=== PATIENT | female | born 1990 | race African-American/Black ===

== ENCOUNTER → 2020-06-04 09:31 | Outpatient (CLI) | payer OTHER, SELFPAY ==
[2020-06-05 16:59] LABS: COVID19 Sendout Not Detected (Not Detect)
== END ==
PROVIDERS: Visit Provider Physician Assistant
DX: Z11.59 Encounter for screening for other viral diseases (principal)
CPT/HCPCS: 87635

== ENCOUNTER 2020-06-07 08:31 | Day surgery (SDC) | payer OTHER, SELFPAY ==
--- NOTE | 2020-06-07 | PATH_ITS ---
[facility] Accession Number: [id number] . 01 Material submitted: . rectum - RECTAL BIOPSY . 02 Diagnosis: Rectum, Biopsy: Mild active colitis; please see comment. Negative for granulomata, dysplasia or malignancy. V 06/09/2020 1035 Local . 02 Comment: The histologic findings raise a differential diagnosis including infection, drug/toxin-induced injury and, in the appropriate clinical setting, idiopathic inflammatory bowel disease. . 02 Electronically signed: . Aniket Huynh MD, PhD, Pathologist NPI- [id number] . 01 Gross description: . Received in formalin, labeled rectal biopsy, and consists of four new-white fragments of soft tissue measuring 0.6 x 0.5 x 0.2 cm in aggregate. The specimen is entirely submitted in cassette A1. ([id number]) /[facility] 06/08/2020 1100 Local . 02 Pathologist provided ICD-10: K52.9 . 02 CPT . 350635 Performed at: 01 [facility] [address] [facility], [place], [place] [id number] MD Gerry Ceja MD Phone: [phone] Performed at: 02 [facility] [address] [place], [place] [id number] MD Mariaelena Fox MD Phone: [phone]
--- NOTE | 2020-06-07 07:57 | P.HP_ITS ---
History of Present Illness History of Present Illness Date Patient Seen: 06/07/20 Chief complaint: SDC Narrative: 30-year-old female with a history of chronic constipation and abdominal pain who was seen at our office on 05/10/2020. Please refer to that note for further details. There have been no significant changes to her symptoms and physical exam since that visit Meds Home Medications and Allergies Home Medications Medication Instructions Recorded Confirmed Type bupropion HCl [Wellbutrin XL] 300 mg PO QAM 06/07/20 06/07/20 History lisinopril 10 mg PO DAILY 06/07/20 06/07/20 History propranolol 20 mg PO BID 06/07/20 06/07/20 History sertraline [Zoloft] 100 mg PO DAILY 06/07/20 06/07/20 History trazodone 225 mg PO DAILY 06/07/20 06/07/20 History Allergies Allergy/AdvReac Type Severity Reaction Status Date / Time No Known Drug Allergies Allergy Verified 06/07/20 08:51 Exam Narrative Exam Narrative: General: Patient is well developed, not in apparent distress Cardiovascular: Regular rate and rhythm, no murmurs, rubs, or gallops; no evidence of edema; no palpable abdominal aortic aneurysm Gastrointestinal: Normoactive bowel sounds, soft, nontender, nondistended, no rebound tenderness, no hepatosplenomegaly, no evidence of hernia Assessment & Plan Assessment & Plan narrative: 30-year-old female with chronic constipation and abdominal discomfort here for further evaluation to rule out luminal pathology Regarding the procedure(s), the risks and potential complications, benefits, and alternatives (including not doing the procedure) were discussed with the niko zamarripa. The risks include but are not limited to bleeding, splenic injury, infection, perforation which may require surgical intervention, missed lesions, and adverse reactions to sedative medicines. After a question and answer period, the patient agreed to proceed with the procedure(s) and gives informed consent.
[2020-06-07 08:56] VITALS: BP 126/76; PULSE 76; RESP 16; TEMP 36.4; O2SAT 99; BMI 25.1
[2020-06-07] MEDS: SODIUM CHLORIDE 0.9% 1,000 ML 70 ML IV (09:04)
[2020-06-07 09:35] VITALS: BP 97/59; PULSE 67; RESP 20; TEMP 36.4; O2SAT 99
[2020-06-07] MEDS: fentaNYL 250 MCG/5 ML INJ IV (09:35)
[2020-06-07] MEDS: MIDAZOLAM 5 MG/5 ML VIAL IV (09:35)
--- NOTE | 2020-06-07 09:37 | PM.OP.ENDO ---
Operative Date/Time/Diagnoses Date of procedure: 06/07/20 Procedure & Clinicians Indications: Surgeon: Vasile Montana MD Procedure: Colonoscopy with biopsy Preoperative diagnosis: Chronic constipation Postoperative diagnosis: Distal rectal nodularity status post biopsy Medications: Conscious sedation using 4 mg IV of Midazolam and 100 mcg IV of Fentanyl Preanesthesia Assessment An H and P was performed/updated and the Px?s ASA class is 2. The procedure was discussed in detail with the patient. The potential risks and complications including infection, bleeding, missed lesions, perforation, need for surgery in case of perforation, prolonged hospital stay, and were explained. A brief question and answer period was allotted and once all questions were answered, informed consent was obtained. The patient was brought back to the procedure room and placed on standard monitoring. The patient?s vital signs were monitored continuously throughout the entire procedure. Prior to starting, a timeout was performed to confirm the patient?s identity, allergies, medications, and procedure. Procedure in detail The patient was placed in left lateral decubitus position and once adequate sedation was obtained a YESSENIA was performed. The digital rectal examination did not reveal any palpable lesions. The tip of the colonoscope was placed in the anal canal and advanced without difficulty all the way to the cecum which was identified by the appendiceal orifice and the ileocecal valve. Careful examination of all craig of the colon was performed with irrigation of any residual stool. There was no evidence of stenosis or colonic mass throughout the entire colon. Retroflexion was performed in the rectum which showed whitish nodularity in the distal rectal area. Biopsies were taken for histology. Estimated blood loss was minimal. The patient tolerated the procedure well and will be brought back to the recovery area to be discharged once criteria are met. The prep was judged to be good and adequate to identify polyps less than 5 mm. The withdrawal time was 10 minutes. The total physician intraservice time was 18 minutes. Complications There were no complications and estimated blood loss was minimal. Recommendations: Resume previous diet Continue outPx medications Follow up pathology results Repeat colonoscopy depending on pathology results Follow-up with Dr. Millan as previously scheduled An emergency contact number was given to the patient for any complications related to the procedure
[2020-06-07 09:40] VITALS: BP 102/67; PULSE 68; RESP 13; TEMP 36.3; O2SAT 99
[2020-06-07 09:45] VITALS: BP 106/71; PULSE 65; RESP 13; TEMP 36.8; O2SAT 99
[2020-06-07 09:51] VITALS: BP 101/61; PULSE 61; RESP 16; TEMP 36.4; O2SAT 99
[2020-06-07 10:08] VITALS: BP 113/83; PULSE 56; RESP 16; TEMP 36; O2SAT 100
--- NOTE | 2020-06-07 10:08 | SUR.PHASEII ---
patient home in stable condition with friend, Mendel.
== END 2020-06-07 10:09 | disposition home or self-care (01) ==
PROVIDERS: Referring Provider Internal Medicine Gastroenterology; Visit Provider Internal Medicine Gastroenterology
PROC: 0DJD8ZZ Inspection of Lower Intestinal Tract, Via Natural or Artificial Opening Endoscopic (ICD-10-PCS; CPT 45378; principal; 2020-06-07 09:30)
DX: K52.9 Noninfective gastroenteritis and colitis, unspecified (principal)
CPT/HCPCS: 45380; J2250; J3010

== ENCOUNTER → 2021-05-11 12:22 | Outpatient (CLI) | payer OTHER, SELFPAY ==
--- NOTE | 2021-05-11 | DI.MRI.S_ITS ---
PROCEDURE: MR LUMBAR SPINE WO CON INDICATIONS: Radiculopathy, lumbosacral region TECHNIQUE: Noncontrast sagittal T1 spin echo and T2 fast echo, sagittal STIR, axial T1 and T2 fast spin echo through the lumbar spine. In cases with scoliosis, additional coronal T2 fast spin echo may be performed. COMPARISON: [facility] [place], CR, XR LUMBAR SPINE WITH OLBIQUES PLUS FLEXION EXTENSION, 04/23/2021, 11:02. [facility] Outside Film, CT, CT ABDOMEN PELVIS WITHOUT CONTRAST, 10/13/2020, 8:17. FINDINGS: Image quality: Excellent. Alignment and Curvature: There is normal bony alignment. Bone Marrow: Marrow is of normal overall signal. No acute vertebral body compression fractures. Spinal Cord: Conus medullaris terminates at the L1 level. Visualized cord demonstrates normal signal and size. Paraspinous Soft Tissues: No paravertebral masses. T12-L1: Normal appearance. L1-L2: Normal appearance. L2-L3: Normal appearance. L3-L4: No significant abnormality is seen L4-L5: The disc height and disk signal are well-preserved. Minimal disc bulge is seen. Mild facet joint hypertrophy is seen. There is [id number] right-sided and mild left-sided neural foraminal narrowing seen. The central canal is widely patent. L5-S1: The disc height and disk signal are well-preserved. Mild generalized disc bulge is seen, with a mild central disc protrusion. Mild to moderate facet hypertrophy is seen. At least moderate bilateral neural foraminal narrowing can be seen. There is a degree of compression seen upon the exiting nerve roots. Mild central canal narrowing is seen. IMPRESSION: Premature lower lumbar spine degenerative changes are seen, including at least moderate bilateral neural foraminal narrowing at L5-S1, with associated exiting L5 nerve root compression. Dictated by: Ori Barker M.D. on 05/11/2021 at 12:25 Approved by: Ori Barker M.D. on 05/11/2021 at 12:27
== END ==
PROVIDERS: Referring Provider Physical Medicine & Rehabilitation Pain Medicine; Visit Provider Physical Medicine & Rehabilitation Pain Medicine
DX: M54.17 Radiculopathy, lumbosacral region (principal)
CPT/HCPCS: 72148

== ENCOUNTER → 2022-02-14 18:09 | Outpatient (CLI) | payer OTHER, SELFPAY ==
--- NOTE | 2022-02-14 | DI.MRI.S_ITS ---
PROCEDURE: MR CERVICAL SPINE WO CON INDICATIONS: CERVICALGIA TECHNIQUE: Noncontrast sagittal T1 spin echo and T2 fast spin echo, sagittal STIR, foraminal oblique sagittal T2 fast spin echo, and axial gradient echo or T2 fast spin echo through the cervical spine. COMPARISON: [facility] [place], CR, XR CERVICAL SPINE WITH OBLIQUES, 01/22/2022, 15:32. FINDINGS: Image quality: Excellent. Alignment and Curvature: Loss of normal cervical lordosis is present. Bone Marrow: Marrow demonstrates normal overall signal. Spinal Cord: Visualized spinal cord has normal size and signal. No cerebellar tonsillar herniation. Paraspinous Soft Tissues: No paravertebral masses. Prevertebral soft tissues are normal in thickness. C2-C3: Mild disc desiccation. Small central protrusion. Congenital canal stenosis. Moderate canal stenosis. No foraminal stenosis. C3-C4: Congenital canal stenosis. Mild disc desiccation and diffuse disc bulge. Moderate canal stenosis. No foraminal stenosis. C4-C5: Congenital canal stenosis. Mild disc desiccation and diffuse disc bulge. Mild facet hypertrophy. Moderate canal stenosis. Mild bilateral foraminal stenosis. C5-C6: Congenital canal stenosis. Mild disc desiccation and diffuse disc bulge. Mild facet and uncovertebral hypertrophy bilaterally. Moderate canal stenosis. Mild bilateral foraminal stenosis. C6-C7: Congenital canal stenosis. Mild diffuse disc bulge. Mild canal stenosis. Mild bilateral foraminal stenosis. C7-T1: Congenital canal stenosis. Overall mild canal stenosis. No foraminal stenosis. IMPRESSION: 1. Diffuse congenital canal stenosis with superimposed disc and facet disease, as well as uncovertebral hypertrophy. 2. Multilevel canal stenoses, worst at C2-C3, C3-C4, C4-C5, and C5-C6, where there are moderate canal stenoses. 3. Mild multilevel foraminal stenoses. Dictated by: Zina Segura M.D. on 02/15/2022 at 8:18 Approved by: Zina Segura M.D. on 02/15/2022 at 8:20
== END ==
PROVIDERS: Referring Provider Physical Medicine & Rehabilitation Pain Medicine; Visit Provider Physical Medicine & Rehabilitation Pain Medicine
DX: M48.02 Spinal stenosis, cervical region (principal); M50.21 Other cervical disc displacement, high cervical region
CPT/HCPCS: 72141